=== PATIENT | female | born 1960 | race Hispanic/Latino ===

== ENCOUNTER 2017-05-16 04:18 | Emergency (ER) | payer MEDICAID ==
[2017-05-16 04:18] VITALS: BMI 40.6
[2017-05-16 04:43] VITALS: TEMP 97.3
--- NOTE | 2017-05-16 04:53 | C.PDOC ---
History Of Present Illness A 56 y/o F c/o cough with productive yellow sputum for a few days. Denies fever , chills, chest pain, sick contact, or any other complaints. Time Seen by Provider: 05/16/17 04:51 Chief Complaint (Nursing): Cough, Cold, Congestion History Per: Patient History/Exam Limitations: no limitations Onset/Duration Of Symptoms: Days Current Symptoms Are (Timing): Still Present Sick Contacts (Context): None Severity: Mild Recent travel outside of the [place]: No Additional History Per: Patient Past Medical History Reviewed: Historical Data, Nursing Documentation, Vital Signs Vital Signs: Last Vital Signs Temp 97.3 F L 05/16/17 04:38 Pulse 88 05/16/17 06:19 Resp 20 05/16/17 06:19 BP 140/80 05/16/17 06:19 Pulse Ox 97 05/16/17 06:19 - Medical History PMH: Bronchitis (LAST EPISODE 1 MONTH AGO), Fractures (RT.ANKLE CASTED NO O.R.) , Hypercholesterolemia, Hyperlipidemia, Kidney Stones, Chronic Kidney Disease Surgical History: Cholecystectomy Family History: States: Unknown Family Hx - Social History Hx Alcohol Use: No Hx Substance Use: No - Immunization History Hx Tetanus Toxoid Vaccination: No Hx Influenza Vaccination: No Hx Pneumococcal Vaccination: No Review Of Systems Except As Marked, All Systems Reviewed And Found Negative. Constitutional: Negative for: Fever, Chills Cardiovascular: Negative for: Chest Pain Respiratory: Positive for: Cough Physical Exam - Physical Exam Appears: Non-toxic, No Acute Distress Skin: Warm, Dry Head: Atraumatic, Normacephalic Chest: Symmetrical Cardiovascular: Rhythm Regular Respiratory: No Accessory Muscle Use, No Rales, Rhonchi (occasional ), No Wheezing Neurological/Psych: Oriented x3, Normal Speech, Normal Cognition ED Course And Treatment O2 Sat by Pulse Oximetry: 99 (RA) Pulse Ox Interpretation: Normal - Other Rad Chest XRAY X-Ray: Interpreted by Me, Viewed By Me Interpretation: EXAM: XR Chest, 2 Views. CLINICAL HISTORY: 56 years old, female; Pain; Chest pain; Additional info: Cough and chest pain. TECHNIQUE: Frontal and lateral views of the chest. EXAM DATE/TIME: 05/16/2017 4:47 AM. COMPARISON: No relevant prior studies available. FINDINGS: The mediastinal cardiac silouette is normal in size. There is a linear opacity in the right lung apex likely platelike atelectasis or scarring. Similar finding. was described in prior report of 2015 however images were not provided. No effusions are identified. The osseous structures are normal. Linear opacity right lung apex. Recommend correlation with prior images to assess for stability. Medical Decision Making Medical Decision Making: Impression: A 56 y/o F c/o cough with productive yellow sputum for a few days. Plans: -CXR -Reassess Disposition Counseled Patient/Family Regarding: Diagnosis - Disposition Referrals: [facility] [Outside] Disposition: HOME/ ROUTINE Disposition Time: 06:06 Condition: STABLE Prescriptions: Azithromycin [Zithromax] 500 mg PO DAILY #7 tablet Benzonatate [Tessalon Perles] 100 mg PO TID #20 sgl Instructions: Upper Respiratory Infection (ED) Forms: [facility] (Malawian) - POA Present On Arrival: None - Clinical Impression Clinical Impression: Upper respiratory infection, Bronchitis - Scribe Statement The provider has reviewed the documentation as recorded by the Jacquelinibdeann joyce All medical record entries made by the Jacquelinibdeann were at my direction and personally dictated by me. I have reviewed the chart and agree that the record accurately reflects my personal performance of the history, physical exam, medical decision making, and the department course for this patient. I have also personally directed, reviewed, and agree with the discharge instructions and disposition.
--- NOTE | 2017-05-16 05:54 | RAD ---
EXAM: XR Chest, 2 Views CLINICAL HISTORY: 56 years old, female; Pain; Chest pain; Additional info: Cough and chest pain TECHNIQUE: Frontal and lateral views of the chest. EXAM DATE/TIME: 05/16/2017 4:47 AM COMPARISON: No relevant prior studies available. FINDINGS: The mediastinal cardiac silouette is normal in size. There is a linear opacity in the right lung apex likely platelike atelectasis or scarring. Similar finding was described in prior report of 2014 however images were not provided. No effusions are identified. The osseous structures are normal. IMPRESSION: Linear opacity right lung apex. Recommend correlation with prior images to assess for stability.
[2017-05-16] MEDS ORDERED: guaiFENesin DM 100 mg-10 mg/5 ml UD PO STA (06:04)
[2017-05-16] MEDS ORDERED: guaiFENesin DM 100 mg-10 mg/5 ml UD ONE (06:10)
[2017-05-16 06:21] VITALS: BP 140/80; PULSE 88; RESP 20
[2017-05-17 10:30] VITALS: O2SAT 99
== END 2017-05-16 06:18 | disposition home or self-care (01) ==
LOC: C.ER 04:18
DX: J06.9 Acute upper respiratory infection, unspecified (principal); J40 Bronchitis, not specified as acute or chronic

== ENCOUNTER 2017-10-13 05:55 | Emergency (ER) | payer MEDICAID ==
[2017-10-13 05:55] VITALS: BMI 40.6
[2017-10-13 06:49] VITALS: RESP 18
[2017-10-13] MEDS ORDERED: Albuterol 0.083% Inhal Sol (2.5 mg/3 mL) UD IH STA (07:27)
--- NOTE | 2017-10-13 07:47 | C.PDOC ---
History Of Present Illness 56 yr old female with PMHx of asthma, NIDDM, HTN presents to the ER for evaluation of cold symptoms, associated with dry cough and runny nose for the past 2 weeks. Patient states the cough has been worsening and now with chest tightness. Denies fever, chills, headache, dizziness, neck pain, CP, SOB,dyspnea , wheezing, sputum production, nausea, vomiting, abdominal pain, back pain. Ambulate to Ed for evaluation, not in any apparent distress Time Seen by Provider: 10/13/17 07:12 Chief Complaint (Nursing): Cough, Cold, Congestion History Per: Patient History/Exam Limitations: no limitations Onset/Duration Of Symptoms: Days (2 weeks) Sick Contacts (Context): None Past Medical History Reviewed: Historical Data, Nursing Documentation, Vital Signs Vital Signs: Last Vital Signs Temp 98.2 F 10/13/17 06:45 Pulse 87 10/13/17 06:45 Resp 18 10/13/17 06:45 BP 135/83 10/13/17 06:45 Pulse Ox 99 10/13/17 08:00 - Medical History PMH: Bronchitis (LAST EPISODE 1 MONTH AGO), Fractures (RT.ANKLE CASTED NO O.R.) , Hypercholesterolemia, Hyperlipidemia, Kidney Stones, Chronic Kidney Disease Surgical History: Cholecystectomy Family History: States: No Known Family Hx - Social History Hx Alcohol Use: No Hx Substance Use: No - Immunization History Hx Tetanus Toxoid Vaccination: No Hx Influenza Vaccination: No Hx Pneumococcal Vaccination: No Review Of Systems Except As Marked, All Systems Reviewed And Found Negative. Constitutional: Negative for: Fever, Chills ENT: Positive for: Nose Discharge (Runny nose) Cardiovascular: Positive for: Other ((+) Chest tightness) Respiratory: Positive for: Cough (Dry). Negative for: Shortness of Breath Gastrointestinal: Negative for: Nausea, Vomiting, Abdominal Pain Musculoskeletal: Negative for: Neck Pain Neurological: Negative for: Headache Physical Exam - Physical Exam Appears: Well, Non-toxic, No Acute Distress Skin: Warm, Dry, No Rash Head: Normacephalic Eye(s): bilateral: PERRL Ear(s): Bilateral: Normal Nose: No Flaring, Discharge (SCANT CLEAR RHINORRHEA B/L) Oral Mucosa: Moist, No Drooling Lips: Normal Appearing Throat: No Erythema, No Exudate, No Drooling Neck: Trachea Midline, Supple Cardiovascular: Rhythm Regular, No Murmur, No JVD Respiratory: No Decreased Breath Sounds, No Accessory Muscle Use, No Rales, No Rhonchi, No Stridor, Wheezing (Scattered basilar wheezing) Gastrointestinal/Abdominal: Soft, No Tenderness, No Guarding, No Rebound Back: No CVA Tenderness Extremity: Normal ROM, No Deformity, No Swelling Neurological/Psych: Oriented x3, Normal Speech Gait: Steady ED Course And Treatment O2 Sat by Pulse Oximetry: 99 (RA) Pulse Ox Interpretation: Normal - Radiology CXR: Interpreted by Me, Viewed By Me CXR Interpretation: Yes: No Acute Disease Progress Note: On re-evaluation, pt is afebrile, hemodynamicaly stable. NOn- toxic. PusleOx 99% RA. ENT: pato cute findings. neck: SUpple, (-) carotid briuts B/L, (-) JVD. Lungs: CTA B/L, BS equal B/L. ABd: benign. Neuorlogicaly intact. CXR review and appeas normal. Pt has clinical findings c /w bronchitis. Pt advised. re.f to F/u with PMD in 2-3 days for re-eavl. return to ED if any worsening or new changes. Medical Decision Making Medical Decision Making: PLAN: * CXR * Albuterol IH * Zithromax PO * Prednisone PO Disposition Counseled Patient/Family Regarding: Studies Performed, Diagnosis, Need For Followup, Rx Given - Disposition Referrals: Harrison Tijerina MD [Primary Care Provider] - Disposition: HOME/ ROUTINE Disposition Time: 08:07 Condition: STABLE Additional Instructions: ENCOURAGE FLUIDS TAKE MEDICATION PRESCRIBED FOLLOW UP WITH PMD IN 2-3 DAYS FOR RE-EVALUATION. RETURN TO ED IF ANY WORSENING OR NEW CHANGES. 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 - Scribe Statement The provider has reviewed the documentation as recorded by the Scribe Joaquina Rick All medical record entries made by the Scribe were at my direction and personally dictated by me. I have reviewed the chart and agree that the record accurately reflects my personal performance of the history, physical exam, medical decision making, and the department course for this patient. I have also personally directed, reviewed, and agree with the discharge instructions and disposition.
[2017-10-13] MEDS ORDERED: Albuterol-Ipratrop 3 mg / 0.5 (3 ml) UD ONE (08:09)
[2017-10-13 08:36] VITALS: BP 130/80; PULSE 78; TEMP 98; O2SAT 98
--- NOTE | 2017-10-13 08:36 | RAD ---
HISTORY: COMPARISON: 05/16/2017. TECHNIQUE: Chest PA and lateral FINDINGS: LINES AND TUBES: None. LUNG AND PLEURA: The lungs are hyperinflated and there is peribronchial thickening with chronic changes in both lungs. There is linear atelectasis/scarring in the right upper lobe. There are fibrotic changes in the right upper lobe. No focal consolidation HEART AND MEDIASTINUM: The heart is not enlarged. The hilar and mediastinal contours are within normal limits. SKELETAL STRUCTURES: The bony structures are within normal limits for the patient's age. VISUALIZED UPPER ABDOMEN: Normal. OTHER FINDINGS: None. IMPRESSION: No active pulmonary disease. COPD.
== END 2017-10-13 08:35 | disposition home or self-care (01) ==
LOC: SUPCPDRO 05:55 → C.ER 05:55
DX: J40 Bronchitis, not specified as acute or chronic (principal)

== ENCOUNTER 2018-02-28 13:09 | Emergency (ER) | payer MEDICAID ==
[2018-02-28 13:10] VITALS: BMI 40.6
[2018-02-28 13:38] VITALS: RESP 18
--- NOTE | 2018-02-28 14:24 | C.PDOC ---
History Of Present Illness 57 yo female w/PMHx of NIDDM, HTN, obese, come in for evaluation of diffuse lower back pain for past few weeks. Pt reports, pain is more constant now, aching, non-radiating and worse with movement. Pt admits, was taking Celebrex at home with minimal improvement. Otherwise, pt denies known trauma or injury, fever, chills, recent illness, sore throat, abd. pain, N/V/D, UTI sx, saddle anesthesia, incontinence, denies weakness, sensory or vascular deficits to B/L LEs. Ambulate to ED with stable gait, appears in pain. Time Seen by Provider: 02/28/18 13:32 Chief Complaint (Nursing): Back Pain History Per: Patient Onset/Duration Of Symptoms: Gradual Past Medical History Reviewed: Historical Data, Nursing Documentation, Vital Signs Vital Signs: Last Vital Signs Temp 98.6 F 02/28/18 13:35 Pulse 85 02/28/18 13:35 Resp 18 02/28/18 13:35 BP 160/93 H 02/28/18 13:35 Pulse Ox 97 02/28/18 14:30 - Medical History PMH: Bronchitis (LAST EPISODE 1 MONTH AGO), Fractures (RT.ANKLE CASTED NO O.R.) , Hypercholesterolemia, Hyperlipidemia, Kidney Stones, Chronic Kidney Disease Other PMH: Obese Surgical History: Cholecystectomy Family History: States: No Known Family Hx - Social History Hx Alcohol Use: No Hx Substance Use: No - Immunization History Hx Tetanus Toxoid Vaccination: No Hx Influenza Vaccination: No Hx Pneumococcal Vaccination: No Review Of Systems Except As Marked, All Systems Reviewed And Found Negative. Constitutional: Negative for: Fever, Chills ENT: Negative for: Throat Pain Cardiovascular: Negative for: Chest Pain Respiratory: Negative for: Cough, Shortness of Breath Gastrointestinal: Negative for: Nausea, Vomiting, Abdominal Pain, Diarrhea Genitourinary: Negative for: Dysuria, Incontinence, Vaginal Discharge, Vaginal Bleeding Musculoskeletal: Positive for: Back Pain Skin: Negative for: Rash Neurological: Negative for: Weakness, Numbness, Headache Physical Exam - Physical Exam Appears: Well, Non-toxic, No Acute Distress Skin: Normal Color, Warm, Dry, No Rash Head: Normacephalic Eye(s): bilateral: PERRL Nose: No Discharge Oral Mucosa: Moist Throat: No Erythema Neck: Trachea Midline, Supple Cardiovascular: Rhythm Regular Respiratory: No Decreased Breath Sounds, No Accessory Muscle Use, No Stridor, No Wheezing Gastrointestinal/Abdominal: Soft, No Tenderness, No Distention, No Guarding Back: No CVA Tenderness, No Vertebral Tenderness, Paraspinal Tenderness ( diffuse lumbar. No midline tenderness, no skin changes, no palpable deformity.) Extremity: Normal ROM, No Pedal Edema, No Capillary Refill, No Deformity, No Swelling Neurological/Psych: Oriented x3, Normal Speech, Normal Motor, Normal Sensation, Normal Reflexes ED Course And Treatment O2 Sat by Pulse Oximetry: 97 Pulse Ox Interpretation: Normal - CT Scan/US CT abd/pelvis Other Rad Studies (CT/US): Radiology Report Reviewed CT/US Interpretation: IMPRESSION: Nonobstructing right lower pole renal calculi. 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 Fatty infiltration of the liver. Progress Note: On re-evaluation, pt is afebrile, hemodynamicaly stable. NOn- toxic. Ambulatory in ED with stable gait. neck: Supple. ENT: no acute findings. Lungs: CTA B/L, BS equal B/L. Abd: benign, (-) guarding, (-) rebound. back: (-) CVA tenderness. Neuorlogicaly intact. Xray of L-spine review (-) acute fx or sublux. UA (+) RBC. CT abd/pelvis (-) evidence of acute nephrolithiasis, hydronephrosis. Pt has clinical findings c/w lower back strain. Pt advised on course of ds. ref. to f/u with PMD in 2-3 days for re- eval. return to ED if any worsening or new changes. Disposition Counseled Patient/Family Regarding: Studies Performed, Diagnosis, Need For Followup, Rx Given - Disposition Referrals: Harrison Tijerina MD [Medical Doctor] - Disposition: HOME/ ROUTINE Disposition Time: 14:29 Condition: STABLE Additional Instructions: Take medication as prescribed Light duty to lower back, avoid heavy lifting, bending, etc Follow up with PMD in 2-3 days for re-evaluation, consider MRI of L-spine return to ED if any worsening or new changes. Prescriptions: Gabapentin [Neurontin] 300 mg PO TID #20 cap Methocarbamol [Robaxin] 500 mg PO TID #14 tab traMADol [Ultram] 50 mg PO TID #7 tab Instructions: Low Back Pain in Adults Forms: [facility] (Malian) - Clinical Impression Clinical Impression: Low back strain
[2018-02-28 14:35] LABS: SQUAMOUS EPITHIAL 2 /hpf (0-5); URINE BILIRUBIN NEGATIVE (NEGATIVE); URINE BLOOD 1+ (NEGATIVE); URINE CALCIUM OXALATE CRYSTALS FEW /hpf (<OCC); URINE CLARITY Hazy (Clear); URINE COLOR Yellow (YELLOW); URINE GLUCOSE (UA) 1+ mg/dL (Normal); URINE LEUKOCYTE ESTERASE NEG Leu/uL (Negative); URINE PROTEIN 1+ mg/dL (NEGATIVE); URINE UROBILINOGEN NORMAL mg/dL (0.2-1.0)
--- NOTE | 2018-02-28 15:33 | RAD ---
PROCEDURE: Radiographs of the Lumbar Spine. HISTORY: pain COMPARISON: No prior. FINDINGS: BONES: Normal alignment. No listhesis. No fracture. DISC SPACES: Degenerative disc disease at L4-5 with narrowing of intervertebral disc space and anterior osteophytes. The remaining intervertebral disc spaces are maintained in height. OTHER FINDINGS: None. IMPRESSION: Degenerative disc disease L4-5. Otherwise unremarkable.
--- NOTE | 2018-02-28 16:08 | CT ---
PROCEDURE: CT Abdomen and Pelvis without intravenous contrast HISTORY: back pian, hx of kidney stone COMPARISON: None. TECHNIQUE: Without contrast.. Contrast dose: 0 Radiation dose: Total exam DLP = 1277.61 mGy-cm. This CT exam was performed using one or more of the following dose reduction techniques: Automated exposure control, adjustment of the mA and/or kV according to patient size, and/or use of iterative reconstruction technique. FINDINGS: LOWER THORAX: Unremarkable. LIVER: Diffusely diminished attenuation consistent with fatty infiltration. Normal size and contour. No mass. No biliary dilatation. GALLBLADDER AND BILE DUCTS: Status post cholecystectomy PANCREAS: Unremarkable. No gross lesion or ductal dilatation. SPLEEN: Unremarkable. ADRENALS: Unremarkable. No mass. KIDNEYS AND URETERS: At least 2 and possibly more small calculi in the lower pole of the right kidney, nonobstructing. The largest calculus measures 8 mm in length. No left renal calculi. No hydronephrosis. No renal mass. VASCULATURE: Unremarkable. No aortic aneurysm. BOWEL: No bowel obstruction. Suspect gastric lipoma, 3.1 cm in greatest dimension. This is slightly less prominent than on prior examination of 10/04/2015. Differential diagnosis includes small bezoar. However the density of this structure measures -55 Hounsfield units. Most likely lipoma. No bowel obstruction. No other abnormal bowel loops are identified. APPENDIX: Unremarkable. Normal appendix. PERITONEUM: Unremarkable. No free fluid. No free air. LYMPH NODES: Unremarkable. No enlarged lymph nodes. BLADDER: Poorly distended. Grossly unremarkable. REPRODUCTIVE: Normal uterus. BONES: No acute fracture. OTHER FINDINGS: None. IMPRESSION: Nonobstructing right lower pole renal calculi. 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 Fatty infiltration of the liver.
[2018-02-28 16:25] VITALS: BP 139/85; PULSE 82; TEMP 98.2; O2SAT 96
== END 2018-02-28 16:25 | disposition home or self-care (01) ==
LOC: C.ER 13:09
DX: S39.012A Strain of muscle, fascia and tendon of lower back, initial encounter (principal); X58.XXXA Exposure to other specified factors, initial encounter

== ENCOUNTER 2018-10-27 23:28 | Emergency (ER) | payer MEDICAID ==
[2018-10-27 23:29] VITALS: BMI 40.6
[2018-10-27 23:54] VITALS: RESP 20; O2SAT 94
[2018-10-28] MEDS ORDERED: Promethazine/Cod 6.25mg-10mg/5ml Syr UD PO STA (00:39)
[2018-10-28] MEDS ORDERED: Albuterol 0.083% Inhal Sol (2.5 mg/3 mL) UD ONE (00:40)
[2018-10-28] MEDS: Albuterol 0.083% Inhal Sol (2.5 mg/3 mL) UD INH SCH ×2 (00:43→00:58)
[2018-10-28] MEDS ORDERED: Promethazine/Cod 6.25mg-10mg/5ml Syr UD ONE (01:04)
--- NOTE | 2018-10-28 01:16 | C.PDOC ---
History Of Present Illness 57 year old female presents to the ED c/o cough, chest congestions, chest tightness and SOB for the past 2 days. Patient also reports having low grade temperature of 100.3 at home. Patient tired using OTC Robitussin and inhaler at home with no relief. Patient denies nausea, vomit, diarrhea, abdominal pain, rash, injury, fall, trauma, recent travel, sick contacts. Time Seen by Provider: 10/28/18 00:04 Chief Complaint (Nursing): Cough, Cold, Congestion History Per: Patient History/Exam Limitations: no limitations Onset/Duration Of Symptoms: Days (2) Current Symptoms Are (Timing): Still Present Location Of Pain: Throat Associated Symptoms: Fever, Cough, Sinus Drainage, Nasal Congestion Recent travel outside of the [place]: No Additional History Per: Patient Past Medical History Reviewed: Historical Data, Nursing Documentation, Vital Signs Vital Signs: Last Vital Signs Temp 99.4 F 10/27/18 23:49 Pulse 95 H 10/27/18 23:49 Resp 20 10/27/18 23:49 BP 129/80 10/27/18 23:49 Pulse Ox 94 L 10/27/18 23:49 - Medical History PMH: Bronchitis (LAST EPISODE 1 MONTH AGO), Fractures (RT.ANKLE CASTED NO O.R.), Hypercholesterolemia, Hyperlipidemia, Kidney Stones, Chronic Kidney Disease Surgical History: Cholecystectomy Family History: States: Unknown Family Hx - Social History Hx Alcohol Use: No Hx Substance Use: No - Immunization History Hx Tetanus Toxoid Vaccination: No Hx Influenza Vaccination: No Hx Pneumococcal Vaccination: No Review Of Systems Constitutional: Positive for: Fever. Negative for: Chills ENT: Positive for: Nose Congestion Cardiovascular: Positive for: Chest Pain. Negative for: Palpitations Respiratory: Positive for: Cough, Shortness of Breath. Negative for: Sputum, Wheezing Gastrointestinal: Negative for: Nausea, Vomiting, Abdominal Pain Genitourinary: Negative for: Dysuria Skin: Negative for: Rash Neurological: Negative for: Weakness, Numbness, Headache, Dizziness Physical Exam - Physical Exam Appears: Non-toxic, No Acute Distress Skin: Warm, Dry Head: Atraumatic, Normacephalic Eye(s): bilateral: Normal Inspection Oral Mucosa: Moist Throat: Normal, No Erythema, No Exudate Neck: Normal ROM, Supple Chest: Symmetrical Cardiovascular: Rhythm Regular Respiratory: Decreased Breath Sounds, No Rales, No Rhonchi, Wheezing (expiratory) Gastrointestinal/Abdominal: Soft, No Tenderness, No Guarding, No Rebound Extremity: Normal ROM, No Tenderness, No Swelling Neurological/Psych: Oriented x3, Normal Speech, Normal Cognition Gait: Steady ED Course And Treatment O2 Sat by Pulse Oximetry: 94 - Radiology CXR: Interpreted by Me, Viewed By Me CXR Interpretation: No: Infiltrates Progress Note: Plan: - CXR. - albuterol neb x 2. - Prednisone 60 mg PO. - Phenergan 10 mg PO. On reassessment, patient is resting comfortably, and is in no acute distress. Patient was instructed to follow up with physician/clinic in 1-2 days for further evaluation. Reassessment Condition: Improved Disposition Counseled Patient/Family Regarding: Diagnosis, Need For Followup - Disposition Referrals: Horacio Hernández MD [Medical Doctor] - Disposition: HOME/ ROUTINE Disposition Time: 01:25 Condition: STABLE Additional Instructions: Please follow up with PMD Increase PO fluids Return to ER if worse Prescriptions: Albuterol HFA [Ventolin HFA 90 mcg/actuation (8 g)] 2 puff IH [id number] #1 inhaler Azithromycin [Zithromax] 250 mg PO DAILY #6 tab Benzonatate [Tessalon Perles] 200 mg PO TID #14 sgl predniSONE [Prednisone] 40 mg PO DAILY #10 tab Instructions: Acute Bronchitis, Adult (DC) Forms: [employer] (Surinamese) - Clinical Impression Clinical Impression: Bronchitis - 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 - Scribe Statement The provider has reviewed the documentation as recorded by the Scribe Luigi Rodriguez All medical record entries made by the Scribe were at my direction and personally dictated by me. I have reviewed the chart and agree that the record accurately reflects my personal performance of the history, physical exam, medical decision making, and the department course for this patient. I have also personally directed, reviewed, and agree with the discharge instructions and disposition.
[2018-10-28 01:47] VITALS: BP 127/78; PULSE 101; TEMP 98.9
--- NOTE | 2018-10-28 11:45 | RAD ---
Date of service: 10/28/2018 HISTORY: cough, chest congestion COMPARISON: 10/13/2017 TECHNIQUE: Chest PA and lateral FINDINGS: LUNGS: Right upper lobe scarring, a stable finding. PLEURA: No significant pleural effusion identified. No pneumothorax apparent. CARDIOVASCULAR: No aortic atherosclerotic calcification present. Normal cardiac size. No pulmonary vascular congestion. OSSEOUS STRUCTURES: No significant abnormalities. VISUALIZED UPPER ABDOMEN: Normal. OTHER FINDINGS: None. IMPRESSION: No active disease. No significant interval change compared to the prior examination(s). Concordant results with the preliminary interpretation rendered by the emergency department physician procedure.
== END 2018-10-28 01:48 | disposition home or self-care (01) ==
LOC: C.ER 23:28
DX: J40 Bronchitis, not specified as acute or chronic (principal)